=== PATIENT | male | born 1930 | race Caucasian/White ===

== ENCOUNTER 2018-07-15 15:53 | Inpatient (IN) | payer OTHER, BC ==
[~2018-07-15] VITALS: Ht 154.9 cm; Wt 83.9 kg
[2018-07-15 16:05] VITALS: Ht 154.9 cm; Wt 83.9 kg
[2018-07-15 17:15] LABS: RED CELL DISTRIBUTION WIDTH 13.6 % (11.5-14.5)
[2018-07-15 17:16] LABS: PLATELET COUNT 105 x10^3mcL (130-400)
[2018-07-15 17:30] LABS: CALCIUM 9.3 mg/dL (8.5-10.1); CARBON DIOXIDE 29.6 mmol/L (21-32); CHLORIDE SERUM 106 mmol/L (98-107); CREATININE SERUM 1.1 mg/dL (0.7-1.3); GLUCOSE SERUM 161 mg/dL (74-106); POTASSIUM SERUM 4.8 mmol/L (3.5-5.1); SODIUM SERUM 142 mmol/L (136-145)
[2018-07-15 17:36] LABS: ALKALINE PHOSPHATASE 194 U/L (46-116); ALT/SGPT 48 U/L (16-63); AST/SGOT 52 U/L (15-37); BILIRUBIN TOTAL 0.8 mg/dL (0.20-1.00); TOTAL PROTEIN, SERUM 7.3 g/dL (6.4-8.2)
[2018-07-15 17:37] LABS: ALBUMIN 2.9 g/dL (3.4-5.0)
[2018-07-15 18:08] LABS: BAND NEUTROPHIL 4 % (0-10); SEGMENTED NEUTROPHILS 90 % (37-75)
[2018-07-15 18:09] LABS: ATYPICAL LYMPH 0 %; MONOCYTE 5 % (0-7); rbc morphology (normal/abnorm) ABNORMAL (NORMAL)
[2018-07-15 18:10] LABS: PLATELET MORPHOLOGY D
[2018-07-15 20:18] VITALS: BP 93/62
[2018-07-15 21:26] VITALS: BP 95/58
[2018-07-16 05:13] VITALS: BP 86/50
[2018-07-16 06:25] LABS: CALCIUM 8.7 mg/dL (8.5-10.1); CARBON DIOXIDE 25.3 mmol/L (21-32); CHLORIDE SERUM 104 mmol/L (98-107); CREATININE SERUM 1.8 mg/dL (0.7-1.3); GLUCOSE SERUM 179 mg/dL (74-106); POTASSIUM SERUM 4.3 mmol/L (3.5-5.1); SODIUM SERUM 136 mmol/L (136-145)
[2018-07-16 07:37] LABS: RED CELL DISTRIBUTION WIDTH 13.3 % (11.5-14.5)
[2018-07-16 07:46] LABS: BASOPHIL % 0 % (0-2); PLATELET COUNT 110 x10^3mcL (130-400)
[2018-07-16 12:58] VITALS: BP 97/51
[2018-07-16 18:00] VITALS: BP 106/74
[2018-07-16 20:02] VITALS: BP 109/57
[2018-07-17 06:32] VITALS: BP 118/60
[2018-07-17 06:38] LABS: CALCIUM 8.1 mg/dL (8.5-10.1); CARBON DIOXIDE 26.9 mmol/L (21-32); CHLORIDE SERUM 106 mmol/L (98-107); CREATININE SERUM 1.2 mg/dL (0.7-1.3); GLUCOSE SERUM 137 mg/dL (74-106); PHOSPHOROUS 3.5 mg/dL (2.5-4.9); POTASSIUM SERUM 4.7 mmol/L (3.5-5.1); SODIUM SERUM 140 mmol/L (136-145)
[2018-07-17 07:22] LABS: BASOPHIL % 0 % (0-2); PLATELET COUNT 87 x10^3mcL (130-400); RED CELL DISTRIBUTION WIDTH 14.5 % (11.5-14.5)
[2018-07-17 09:40] VITALS: BP 121/63
[2018-07-17 13:14] VITALS: BP 105/57
[2018-07-17 16:09] VITALS: BP 110/56
[2018-07-17 20:50] VITALS: BP 92/58
[2018-07-18 05:37] VITALS: BP 121/62
[2018-07-18 06:36] LABS: CARBON DIOXIDE 25.6 mmol/L (21-32); CHLORIDE SERUM 107 mmol/L (98-107); CREATININE SERUM 1.2 mg/dL (0.7-1.3); GLUCOSE SERUM 118 mg/dL (74-106); POTASSIUM SERUM 4.4 mmol/L (3.5-5.1); SODIUM SERUM 142 mmol/L (136-145)
[2018-07-18 09:53] VITALS: BP 100/49
[2018-07-18 09:56] LABS: BASOPHIL % 0 % (0-2); PLATELET COUNT 73 x10^3mcL (130-400); RED CELL DISTRIBUTION WIDTH 14.6 % (11.5-14.5)
[2018-07-18 13:25] VITALS: BP 116/64
[2018-07-18 17:36] VITALS: BP 109/63
[2018-07-19 05:32] VITALS: BP 109/64
[2018-07-19 10:27] VITALS: BP 91/56
[2018-07-19 14:17] VITALS: BP 99/61
[2018-07-19 17:53] VITALS: BP 132/76
[2018-07-19 19:32] VITALS: BP 122/76
[2018-07-19 23:55] VITALS: BP 101/67
[2018-07-20 04:11] VITALS: BP 105/69
[2018-07-20 05:31] LABS: BASOPHIL % 0.2 % (0-2); RED CELL DISTRIBUTION WIDTH 14.4 % (11.5-14.5)
[2018-07-20 05:33] LABS: PLATELET COUNT 99 x10^3mcL (130-400)
[2018-07-20 05:46] LABS: CALCIUM 8.1 mg/dL (8.5-10.1); CARBON DIOXIDE 25.2 mmol/L (21-32); CHLORIDE SERUM 109 mmol/L (98-107); CREATININE SERUM 1.2 mg/dL (0.7-1.3); GLUCOSE SERUM 161 mg/dL (74-106); POTASSIUM SERUM 4.2 mmol/L (3.5-5.1); SODIUM SERUM 143 mmol/L (136-145)
[2018-07-20 07:58] VITALS: BP 124/76
[2018-07-20 09:31] VITALS: BP 124/76
[2018-07-20 16:57] VITALS: BP 131/59
[2018-07-20 19:50] VITALS: BP 113/68
[2018-07-21 06:06] VITALS: BP 125/73
[2018-07-21 06:18] LABS: CHLORIDE SERUM 112 mmol/L (98-107); GLUCOSE SERUM 147 mg/dL (74-106); POTASSIUM SERUM 4.2 mmol/L (3.5-5.1); SODIUM SERUM 146 mmol/L (136-145)
[2018-07-21 06:44] LABS: BASOPHIL % 0 % (0-2); PLATELET COUNT 88 x10^3mcL (130-400); RED CELL DISTRIBUTION WIDTH 14.6 % (11.5-14.5)
[2018-07-21 07:57] VITALS: BP 130/82
[2018-07-21 13:14] VITALS: BP 110/76
[2018-07-21 17:36] VITALS: BP 131/77
[2018-07-21 19:10] VITALS: BP 133/85
[2018-07-21 21:19] VITALS: BP 132/90
[2018-07-22 06:31] VITALS: BP 99/57
[2018-07-22 06:37] LABS: PLATELET COUNT 151 x10^3mcL (130-400)
[2018-07-22 07:14] LABS: CALCIUM 8.1 mg/dL (8.5-10.1); CARBON DIOXIDE 24.5 mmol/L (21-32); CHLORIDE SERUM 111 mmol/L (98-107); CREATININE SERUM 1.3 mg/dL (0.7-1.3); GLUCOSE SERUM 159 mg/dL (74-106); POTASSIUM SERUM 3.9 mmol/L (3.5-5.1); SODIUM SERUM 147 mmol/L (136-145)
[2018-07-22 07:33] LABS: BASOPHIL % 0 % (0-2); RED CELL DISTRIBUTION WIDTH 14.9 % (11.5-14.5)
[2018-07-22 10:20] VITALS: BP 124/86
[2018-07-22 14:04] VITALS: BP 117/63
[2018-07-22 18:42] VITALS: BP 135/83
[2018-07-22 19:25] VITALS: BP 141/89
[2018-07-23 06:44] VITALS: BP 98/53
[2018-07-23 06:50] VITALS: BP 74/51
[2018-07-23 08:00] VITALS: BP 80/49
[2018-07-23 09:42] VITALS: BP 69/41
[2018-07-23 13:21] VITALS: BP 80/49
[2018-07-23 16:57] VITALS: BP 85/52
== END 2018-07-23 20:23 | disposition expired | DRG 193 ==
LOC: ED 15:53 → IC 17:45 → DU 17:45 → IC 07-19 19:44 → DU 07-20 14:28
PROVIDERS: Emergency Medicine; Internal Medicine; ADMIT Family Medicine
PROC: 0HBRXZZ Excision of Toe Nail, External Approach (ICD-10-PCS; principal; 2018-07-20)
PROC: 0HBRXZZ Excision of Toe Nail, External Approach (ICD-10-PCS; 2018-07-20)
PROC: 0HBRXZZ Excision of Toe Nail, External Approach (ICD-10-PCS; 2018-07-20)
PROC: 0HBRXZZ Excision of Toe Nail, External Approach (ICD-10-PCS; 2018-07-20)
PROC: 0HBRXZZ Excision of Toe Nail, External Approach (ICD-10-PCS; 2018-07-20)
PROC: 0HBRXZZ Excision of Toe Nail, External Approach (ICD-10-PCS; 2018-07-20)
PROC: 0HBRXZZ Excision of Toe Nail, External Approach (ICD-10-PCS; 2018-07-20)
PROC: 0HBRXZZ Excision of Toe Nail, External Approach (ICD-10-PCS; 2018-07-20)
PROC: 0HBRXZZ Excision of Toe Nail, External Approach (ICD-10-PCS; 2018-07-20)
PROC: 0HBRXZZ Excision of Toe Nail, External Approach (ICD-10-PCS; 2018-07-20)
DX: J18.9 Pneumonia, unspecified organism (principal); J96.21 Acute and chronic respiratory failure with hypoxia; S72.091A Other fracture of head and neck of right femur, initial encounter for closed fracture; N17.0 Acute kidney failure with tubular necrosis; E43 Unspecified severe protein-calorie malnutrition; S32.511A Fracture of superior rim of right pubis, initial encounter for closed fracture; D68.69 Other thrombophilia; S09.90XA Unspecified injury of head, initial encounter; N18.9 Chronic kidney disease, unspecified; B35.1 Tinea unguium; R74.0 Nonspecific elevation of levels of transaminase and lactic acid dehydrogenase [LDH]; E11.65 Type 2 diabetes mellitus with hyperglycemia; Z66 Do not resuscitate; Z51.5 Encounter for palliative care; Z68.26 Body mass index [BMI] 26.0-26.9, adult; X58.XXXA Exposure to other specified factors, initial encounter; Y93.89 Activity, other specified; Y92.89 Other specified places as the place of occurrence of the external cause
CPT/HCPCS: 36600; 82962; 83880; 85378; 97110-GP; 97530-GP; J0696; J1170; J1885; J1940; J2270; J2543; J2920; J3490; J7030; J7620; J7626; P9047; Q0092; Q9967